=== PATIENT | male | born 1955 | race Caucasian/White ===

== ENCOUNTER 2017-02-13 06:04 | Day surgery (SDC) | payer MEDICARE, OTHER ==
[2017-02-06 17:25] LABS: HEMATOCRIT 39.9 % (40.0-51.0); HEMOGLOBIN 13.4 g/dL (13.6-17.8)
[2017-02-06 17:33] LABS: PARTIAL THROMBO TIME 35.7 SEC (22.5-37.2)
--- NOTE | ~2017-02-13 | OP ---
Record Of [facility] [address] [place]. [address] NAME: EMERALD ARREAGA : 51 STATUS : [facility] PAT#: [id number] AGE: 61 ADM/REG DATE : 02/13/17 MR#: [id number] REPORT SERV DATE: 02/13/17 DICTATED BY: MEGAN HOBBS DATE: 02/13/17 REPORT STATUS : Draft TRANSCRIBED BY: MODL DATE: 02/13/17 DATE OF PROCEDURE: 02/13/2017 SERVICE: Otolaryngology. SURGEON: Megan Hobbs MD. PREOPERATIVE DIAGNOSIS: Right nasopharyngeal/posterior nasal mass. POSTOPERATIVE DIAGNOSIS: Right nasopharyngeal/posterior nasal mass. PROCEDURES PERFORMED: 1. Right maxillary antrostomy with tissue removal. 2. Right total ethmoidectomy. 3. Right sphenoidotomy with tissue removal. 4. Nasopharyngeal biopsy. 5. Outfracture of the right inferior turbinate. INDICATIONS FOR PROCEDURE: The patient is a 61-year-old male, who was seen by me as an inpatient consult for incidental finding of the right nasopharyngeal mass. There did not appear to be skull-based defect on the CT imaging. The patient presents to the operative room for surgical biopsy. ANESTHESIA: General endotracheal. ESTIMATED BLOOD LOSS: 20 mL. RETAINED ITEMS: None. COMPLICATIONS: None. OPERATIVE FINDINGS: Right nasopharyngeal mass filling the entire nasopharynx. Inflammatory change and polypoid mass emanating from the right posterior nasal cavity in the region of the posterior ethmoid sinuses. SPECIMENS: Right nasopharyngeal mass. DESCRIPTION OF PROCEDURE: The patient was identified in the preoperative holding. Informed consent was ensured. He was brought to the operating room, placed on the operating room table in supine position. General endotracheal anesthesia was induced without difficulty. A time-out was performed to correctly identify the patient and discuss operative plan. The patient was then prepped and draped in the standard fashion for this procedure. Topical epinephrine pledgets with 1:1000 epinephrine were placed in the bilateral nasal cavities and allowed to take full effect for 5 minutes. The nasal endoscope was set up as were the sinus instruments. First, the left nasal cavity was analyzed. The septum on this Record Of [facility] [address] [place]. [address] NAME: EMERALD ARREAGA : 51 STATUS : [facility] PAT#: [id number] AGE: 61 ADM/REG DATE : 02/13/17 MR#: [id number] REPORT SERV DATE: 02/13/17 DICTATED BY: MEGAN HOBBS DATE: 02/13/17 REPORT STATUS : Draft TRANSCRIBED BY: JENNYFER DATE: 02/13/17 side was relatively straight with no spur. There was good access to the posterior nasopharynx and the previously described mass could be seen in the left posterior choana. Several biopsies were taken and sent for frozen analysis. It should be noted, the frozen analysis was consistent with an inflammatory polyp, which was benign in nature. Attention was then turned to the right side. There was a posterior right septal spur. This was avoided as possible. The right nasopharyngeal mass was removed in its entirety. There was also a large polyp which was very fibrotic emanating from the right posterior ethmoid. However, this was not readily apparent as the uncinate process was bulging medially. Consequently, the decision was made to take down the uncinate process for better exposure of this mass. The right maxillary sinus was opened with backbiters, Gerald-Cuts, and microdebrider. The natural os was fully patent. The basal lamella was then perforated, and the posterior ethmoid cells were entered. Prior to this, the ethmoid bulla was taken down. There was significant inflammatory change in the osteophytic bone in this region. The superior turbinate was immediately identified, and the inferior one-third was taken down with straight Gerald-Cuts. The sphenoid os was identified keeping the roof of the maxillary sinus visualized at all times. The sphenoid sinus was entered and tissue was removed. There was inflammatory changes extending toward the skull base along the ethmoid roof. This was avoided as pathology was consistent with a benign inflammatory polyp and so as to avoid skull-based defect. Careful hemostasis was ensured with topical epinephrine. Once all specimens had been sent, the patient was suctioned blood in his nasal cavities. Topical Rizwan powder was applied. He was turned back over to Anesthesia for awakening and extubation, and transported to the PACU in stable condition. He will follow up in approximately one week for postoperative debridement and evaluation. GHULAM/JENNYFER Megan Hobbs MD / [id number] CC: MD Jong Hendricks M.D.
[~2017-02-13 06:04] MED LIST: D100 PO; FLOMAX4 PO; NORCO1 TAB PO; PHENOBARB32.4 MG PO; TOPAMAX100 PO
== END 2017-02-13 13:35 | disposition home or self-care (01) ==
LOC: SDC 06:04
PROVIDERS: Otolaryngology
PROC: 09BU4ZZ Excision of Right Ethmoid Sinus, Percutaneous Endoscopic Approach (ICD-10-PCS; 2017-02-13)
PROC: 099W4ZZ Drainage of Right Sphenoid Sinus, Percutaneous Endoscopic Approach (ICD-10-PCS; 2017-02-13)
PROC: 09SL0ZZ Reposition Nasal Turbinate, Open Approach (ICD-10-PCS; 2017-02-13)
PROC: 099Q4ZZ Drainage of Right Maxillary Sinus, Percutaneous Endoscopic Approach (ICD-10-PCS; principal; 2017-02-13 07:15)
DX: J33.9 Nasal polyp, unspecified (principal); J31.0 Chronic rhinitis; G43.909 Migraine, unspecified, not intractable, without status migrainosus; I10 Essential (primary) hypertension; Z98.890 Other specified postprocedural states; Z79.899 Other long term (current) drug therapy; G40.909 Epilepsy, unspecified, not intractable, without status epilepticus
CPT/HCPCS: 85014; 85018; 85730; 88305; 88307; 88331; 93005; A9270-GY; J2250; J2405; J2710; J3010